=== PATIENT | male | born 1960 | race Caucasian/White ===

== ENCOUNTER 2016-06-14 12:30 | Emergency (ER) | payer OTHER ==
[~2016-06-14] VITALS: Ht 177.8 cm; Wt 109.8 kg
[~2016-06-14 12:30] MED LIST: ASPIRIN EC81 M1 PO; ATORVASTATIN CA20 M1 PO; HYDROCHLOROTH12.5 M3 PO; LOSARTAN POTASS25 M1 PO; METFORMIN HCL1000 M1 PO; METOPROLOL SUCC50 M2 PO; NAPROXEN500 MG PO; ORPHENADRINE C100 MG PO; PANTOPRAZOLE SO40 M1 PO; PREDNISONE10 MG PO; PREDNISONE20 M1 PO; VITAMIN D250000 UNIT PO
[2016-06-14 12:49] VITALS: BP 123/79
--- NOTE | 2016-06-14 13:14 | ED ANKLE/FOOT INJURY COMPLAINT ---
History of Present Illness General Chief Complaint: Foot or Ankle Injury Stated Complaint: R ANKLE PAIN Source: patient Exam Limitations: no limitations Vital Signs & Intake/Output Vital Signs & Intake/Output Vital Signs Date Time Temp Pulse Resp B/P B/P Pulse O2 O2 Flow FiO2 Mean Ox Delivery Rate 06/14 1249 98.4 81 18 123/79 99 Room Air Allergies Coded Allergies: NO KNOWN ALLERGIES (11/03/15) Reconcile Medications Aspirin (Ecotrin*) 81 MG TABLET.DR 1 TAB PO DAILY HEART HEALTH (Reported) Atorvastatin Calcium 20 MG TABLET 1 TAB PO DAILY CHOLESTEROL (Reported) Ergocalciferol (Vitamin D2) (Vitamin D2) 50,000 UNIT CAPSULE 1 CAP PO AD SUPPLEMENT (Reported) Hydrochlorothiazide 12.5 MG CAPSULE 1 CAP PO DAILY WATER PILL (Reported) Losartan Potassium 25 MG TABLET 1 TAB PO DAILY HEART (Reported) Metformin HCl 1,000 MG TABLET 1 TAB PO BID DIABETES (Reported) Metoprolol Succinate 50 MG TAB.ER.24H 1 TAB PO DAILY HEART (Reported) Orphenadrine Citrate 100 MG TABLET.ER 1 TAB PO BID PRN MUSCLE PAIN/SPASMS Pantoprazole Sodium 40 MG TABLET.DR 1 TAB PO DAILY GI (Reported) Prednisone 20 MG TABLET 1 TAB PO DAILY NECK/ARM PAIN Triage Note: C/O PAIN IN R ANKLE WITH SWELLING X 2 WEEKS, STATES HIS LEG GAVE OUT WHILE WALKING. REFUSED PAIN MEDS IN TRIAGE. Triage Nurses Notes Reviewed? yes Occurred: 2 WEEKS Duration: week(s): (2) Timing: no prior history Severity: moderate Severity Numbers: 6 Pain/Injury Location: Right: Ankle. Method of Injury: twisted Modifying Factors: Improves With: immobilization, rest. Worsens With: movement. HPI: Patient is a 55-year-old male presenting to the emergency department with chief complaint of right ankle pain, swelling has been going on for the past 2 weeks. Patient personally he was walking in a store and turned suddenly to go the opposite direction in his right ankle gave out on him. He inverted it. Patient has been dealing with pain and swelling on the lateral aspect of the right malleolus since then. He reports the swelling has gone down since onset 2 weeks ago but still having pain. Pain worse with ambulation. Denies taking anything [id number] to help with symptoms. Denies any numbness or tingling. No Pain. No weakness in the right lower extremity. Denies any other injury. (KEE RAMIREZ) Past History Travel History Traveled to [place] past 21 day No Medical History Any Pertinent Medical History? 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 No (KEE RAMIREZ) Review of Systems Review of Systems Constitutional: Reports: no symptoms. Comments Review of systems: See HPI, All other systems negative. Constitutional, no chills fever or weight loss HEENT: No visual changes no sore throat no congestion Cardiovascular: No chest pain ,palpitation Skin, no jaundice no rashes Respiratory: No dyspnea cough sputum or hemoptysis GI: No nausea no vomiting Muscle skeletal: no back pain, no neck pain, Neurologic: No numbness Psych: No stress anxiety Immunology: No splenectomy or history of AIDS (KEE RAMIREZ) Physical Exam Physical Exam General Appearance: well developed/nourished, no apparent distress, alert, comfortable Leg/Knee/Thigh Left: normal range of motion, normal inspection Comments: Well-developed well-nourished person in no acute distress HEENT: . Nose is atraumatic. Neck: Normal inspection Back: Full range of motion Cardiovascular: normal JVP Respiratory: No respiratory distress. Extremity: Right Ankle with moderate tenderness laterally over the lateral ligaments. No bony tenderness. No medial tenderness. Range of motion is near full but somewhat limited due to pain. No instability is noted. Skin is intact, mild swelling laterally. The foot is neurovascularly intact with sensation and motor grossly intact. There is no foot tenderness or fifth metatarsal tenderness. Able to move all toes. No calf tenderness to palpation, normal and equal pulses. No calf pain to palpation of the right lower extremity. Pedal pulses are 2+ bilaterally. Neuro: Alert oriented x3, motor sensory normal in the lower extremity bilaterally. Skin: No appreciable rash on exposed skin, skin is warm and dry. Psych: Mood and affect is normal, memory and judgment is normal. (KEE RAMIREZ) Progress Differential Diagnosis: gout, fracture, dislocation, sprain, contusion Plan of Care: Orders Procedure Date/time Status XRY-TWO VIEW RIGHT ANKLE 06/14 1300 Active Diagnostic Imaging: Viewed by Me: Radiology Read. Discussed w/RAD: Radiology Read. Radiology Impression: PATIENT: KHADRA LAY PRESENT AGE: 55 PATIENT ACCOUNT NO: [id number] : 60 LOCATION: [facility] ORDERING PHYSICIAN: KEE NUÑEZ SERVICE DATE: 06/14/16-1300 EXAM TYPE: RAD - XRY-TWO VIEW RIGHT ANKLE EXAMINATION: XR ANKLE, RIGHT CLINICAL INFORMATION: Rolled ankle. Rule out fracture. COMPARISON: None TECHNIQUE: AP, lateral, and mortise views of the right ankle. FINDINGS: No acute fracture or dislocation. Lateral soft tissue swelling. The ankle mortise is congruent. Ossific density seen adjacent to the tip of the lateral malleolus is corticated and likely from chronic injury. No ankle joint effusion. Achilles heel spur. IMPRESSION: No acute fracture or malalignment. Lateral soft tissue swelling. Comments: Declines pain medication arrival. Patient reports injury 2 weeks ago. Likely ankle sprain but patient will go fraction are all any avulsion fracture or acute bony pathology. 06/14/2016 1:48:53 PM patient educated on resting and icing and elevating. Compression dressing placed. Patient will follow-up with orthopedics if symptoms persist. Negative x-ray. (KEE RAMIREZ) Departure Departure Time of Disposition: 1318 Disposition: HOME OR SELF CARE Condition: Stable Clinical Impression Primary Impression: Ankle sprain Qualifiers: Encounter type: initial encounter Involved ligament of ankle: unspecified ligament Laterality: right Qualified Code: S93.401A - Sprain of unspecified ligament of right ankle, initial encounter Referrals: GERALD MARROQUIN,CHARLEE GE MD,JOVANNA (PCP/Family) Additional Instructions: Follow-up with orthopedics if symptoms persist. Rest ice and elevate. Wear Contreras wrap for support. Take [id number] anti-inflammatories as directed. Return for worsening symptoms or concerns. Departure Forms: Customer Survey General Discharge Information (KEE RAMIREZ) PA/CODING COMPLIANCE SPECIALIST Co-Sign Statement Statement: ED Attending supervision documentation- [] I saw and evaluated the patient. I have also reviewed all the pertinent lab results and diagnostic results. I agree with the findings and the plan of care as documented in the PA's/CODING COMPLIANCE SPECIALIST's documentation. [X] I have reviewed the ED Record and agree with the PA's/CODING COMPLIANCE SPECIALIST's documentation. [] Additions or exceptions (if any) to the PAs/CODING COMPLIANCE SPECIALIST's note and plan are summarized below: [] (BETSY MARROQUIN,HARPER Ray) Procedures Splinting Location: RIGHT ANKLE Manual Alignment Performed: No Pre-Made Type: velcro Hand-Made Type: Contreras WRAP Splint Applied By: splint applied by me Pre-Proc Neuro Vasc Exam: normal Post-Proc Neuro Vasc Exam: normal Progress: Patient tolerated procedure well. (REYNALDO NUÑEZ,KEE)
--- NOTE | 2016-06-14 13:39 | RADIOLOGY REPORT ---
EXAMINATION: XR ANKLE, RIGHT CLINICAL INFORMATION: Rolled ankle. Rule out fracture. COMPARISON: None TECHNIQUE: AP, lateral, and mortise views of the right ankle. FINDINGS: No acute fracture or dislocation. Lateral soft tissue swelling. The ankle mortise is congruent. Ossific density seen adjacent to the tip of the lateral malleolus is corticated and likely from chronic injury. No ankle joint effusion. Achilles heel spur. IMPRESSION: No acute fracture or malalignment. Lateral soft tissue swelling.
== END 2016-06-14 13:54 ==
LOC: ERH 12:30
DX: S93.401A Sprain of unspecified ligament of right ankle, initial encounter (principal); X50.9XXA Other and unspecified overexertion or strenuous movements or postures, initial encounter; Y93.01 Activity, walking, marching and hiking; Y92.512 Supermarket, store or market as the place of occurrence of the external cause
CPT/HCPCS: 73600-RT